=== PATIENT | female | born 1960 | race Asian ===

== ENCOUNTER → 2021-02-16 | Outpatient (CLI) | payer BC | LOC: MC.RAD 02-08 10:00 | DX: N63.12 Unspecified lump in the right breast, upper inner quadrant (principal) ==

== ENCOUNTER → 2021-03-02 | Outpatient (CLI) | payer BC | LOC: MC.RAD 07:58 | DX: N63.10 Unspecified lump in the right breast, unspecified quadrant (principal) ==

== ENCOUNTER → 2021-08-16 | Outpatient (CLI) | payer BC | LOC: MC.RAD 09:51 | DX: N63.10 Unspecified lump in the right breast, unspecified quadrant (principal) ==